=== PATIENT | female | born 1965 | race Caucasian/White ===

== ENCOUNTER 2022-02-09 18:01 | Emergency (ER) | payer BC, OTHER, MEDICAID ==
[~2022-02-09] VITALS: Ht 160 cm; Wt 51.7 kg
[2022-02-09] MEDS ORDERED: ADENOSINE 6 MG/2 ML SYR IV ONE ×3 (18:31→18:46)
[2022-02-09] MEDS: ADENOSINE 6 MG/2 ML SYR IV ONE ×3 (18:31→18:46)
[2022-02-09] MEDS ORDERED: METOPROLOL TARTRATE 5 MG/5 ML VIAL IVP ONE (18:59)
[2022-02-09] MEDS ORDERED: DILTIAZEM HCL 25 MG IV ONE (19:09)
[2022-02-09] MEDS: DILTIAZEM HCL IV 20 MG in IV DEXTROSE 5% 100 ML IV ONE (19:18)
--- NOTE | 2022-02-09 19:18 | NUR ---
XRAY AND LABS AT BEDSIDE.
[2022-02-09] MEDS ORDERED: METO-357 PO (19:19)
[2022-02-09] MEDS ORDERED: APIX2.5T PO (19:19)
[2022-02-09 19:38] LABS: CARBON DIOXIDE 24 mmol/L (21-32); CHLORIDE 106 mmol/L (98-107); CREATININE 0.7 mg/dL (0.6-1.3); GLUCOSE 134 mg/dL (74-106); HEMATOCRIT 37.7 % (31.2-41.9); MEAN CORPUSCULAR HEMOGLOBIN 26.2 uug (24.7-32.8); PLATELET COUNT (AUTO) 180 K/uL (179-408); POTASSIUM 3.3 mmol/L (3.5-5.1); UREA NITROGEN, BLOOD 11 mg/dL (7-18)
[2022-02-09 19:51] LABS: ALANINE AMINOTRANSFERASE 50 U/L (14-59); ALKALINE PHOSPHATASE 51 U/L (50-136); ASPARTATE AMINOTRANSFERASE 31 U/L (15-37); BILIRUBIN,DIRECT 0.2 mg/dL (0.0-0.2); BILIRUBIN,TOTAL 0.6 mg/dL (0.2-1.0)
--- NOTE | 2022-02-09 20:58 | NUR ---
Patient discharged to home in stable condition. Written and verbal after care instructions given. Patient verbalizes understanding of instructions. Stressed follow up or return to ER for worsening s/s. Steady gait, denies any pain/discomfort. DEnies VALENCIA/dizzyness. Denies any pain/discomfort. No changes in LOC. Accompanied by .
[2022-02-09 21:01] VITALS: BP 97/63
== END 2022-02-09 21:02 | disposition home or self-care (01) ==
LOC: ER 18:01
DX: I47.1 Supraventricular tachycardia (principal); I09.9 Rheumatic heart disease, unspecified; E87.6 Hypokalemia
CPT/HCPCS: 36415; 71045; 80048; 80076; 83880; 84484; 85025; 85730; 93005; 96374; 99291; J0153 ×3; J3490; J7040